=== PATIENT | male | born 1955 | race Caucasian/White ===

== ENCOUNTER 2023-02-28 16:56 | Emergency (ER) | payer OTHER ==
[~2023-02-28] VITALS: Ht 182.9 cm; Wt 74.8 kg
[2023-02-28] MEDS ORDERED: IV NORMAL SALINE 1000 ML BAG IV ONE (17:30)
[2023-02-28] MEDS ORDERED: LOPERAMIDE HCL 2 MG CAPSULE PO ONE (17:30)
[2023-02-28] MEDS ORDERED: LOPERAMIDE HCL 2 MG CAPSULE ONE (17:40)
[2023-02-28 17:50] LABS: BASOPHILS % (AUTO) 0.5 % (0.0-2.0); DIFFERENTIAL COMMENT 0; EOSINOPHILS # (AUTO) 0.1 K/uL (0.0-0.7); EOSINOPHILS % (AUTO) 2.3 % (0.0-7.0); HEMATOCRIT 38.9 % (36.7-47.1); HEMOGLOBIN 12.8 g/dL (12.5-16.3); LYMPHOCYTES # (AUTO) 1.4 K/uL (0.8-4.8); MEAN CORPUSCULAR HEMOGLOBIN 27.8 uug (23.8-33.4); MEAN CORPUSCULAR HGB CONC 33 g/dL (32.5-36.3); MEAN CORPUSCULAR VOLUME 84.6 fL (73.0-96.2); MONOCYTES # (AUTO) 1.4 K/uL (0.1-1.30); NEUTROPHILS # (AUTO) 3.1 K/uL (1.8-8.9); NEUTROPHILS % (AUTO) 51.4 % (38.5-71.5); PLATELET COUNT (AUTO) 228 K/uL (152-348); RED CELL DISTRIBUTION WIDTH 15.3 % (12.1-16.2); WHITE BLOOD COUNT (AUTO) 6.1 K/uL (3.6-10.2)
[2023-02-28 17:55] LABS: LYMPHOCYTES % (AUTO) 30.3 % (20.5-51.5)
[2023-02-28 17:56] LABS: MONOCYTES % (AUTO) 14.5 % (0.0-11.0)
[2023-02-28 17:58] LABS: CALCIUM 8.8 mg/dL (8.5-10.1); CARBON DIOXIDE 26 mmol/L (21-32); CHLORIDE 105 mmol/L (98-107); CREATININE 1.2 mg/dL (0.6-1.3); GLUCOSE 104 mg/dL (74-106); POTASSIUM 3.5 mmol/L (3.5-5.1); SODIUM SERUM 137 mmol/L (136-145); UREA NITROGEN, BLOOD 13 mg/dL (7-18)
[2023-02-28] MEDS ORDERED: DICY10CA13 PO (18:01)
[2023-02-28] MEDS ORDERED: LOPE2TAB25 PO (18:01)
[2023-02-28 18:03] LABS: ALANINE AMINOTRANSFERASE 11 U/L (16-63); ALBUMIN 2.5 g/dL (3.4-5.0); ALKALINE PHOSPHATASE 74 U/L (50-136); ASPARTATE AMINOTRANSFERASE 7 U/L (15-37); BILIRUBIN,DIRECT < 0.1 mg/dL (0.0-0.2); BILIRUBIN,TOTAL 0.2 mg/dL (0.2-1.0); LIPASE 167 U/L (73-393); TOTAL PROTEIN, SERUM 6.5 g/dL (6.4-8.2)
[2023-02-28] MEDS ORDERED: ACETAMINOPHEN ES 500 MG TABLET ONE (18:22)
[2023-02-28] MEDS ORDERED: ACETAMINOPHEN ES 500 MG TABLET PO ONE (18:30)
[2023-02-28 18:49] VITALS: BP 149/92; TEMP 98.5; O2SAT 99
== END 2023-02-28 18:50 | disposition home or self-care (01) ==
LOC: ER 17:00
DX: R19.7 Diarrhea, unspecified (principal); Z88.0 Allergy status to penicillin; Z79.2 Long term (current) use of antibiotics; Z79.899 Other long term (current) drug therapy
CPT/HCPCS: 99283; 96360; 80076; 80048; 83690; 85025; 36415; J7040; A4663; A9150

== ENCOUNTER 2024-01-17 09:12 | Inpatient (IN) | payer OTHER ==
[~2024-01-17] VITALS: Ht 182.9 cm; Wt 69.4 kg
[~2024-01-17 09:12] MED LIST: DICY10CA13 PO; LOPE2TAB25 PO
[2024-01-18 17:30] VITALS: BP 145/76; TEMP 98.5; O2SAT 97
[2024-01-18] MEDS ORDERED: HYDR1VIA2 IJ (17:36)
[2024-01-18] MEDS ORDERED: DIME118C3 TP (17:36)
[2024-01-18] MEDS ORDERED: PANT40TA49 PO (17:36)
[2024-01-18] MEDS ORDERED: POLY15DR40 EACHEYE (17:36)
[2024-01-18] MEDS ORDERED: DOCU100T2 PO (17:36)
[2024-01-18] MEDS ORDERED: ENOX40DI SQ (17:36)
[2024-01-18] MEDS ORDERED: HYDR-4209 PO (17:36)
[2024-01-18] MEDS ORDERED: TAMS-3 PO (17:36)
[2024-01-18] MEDS ORDERED: POLYVINYL ALCOHOL OPHT DROPS 15 ML BOTTLE EACHEYE PRN (18:30)
[2024-01-18] MEDS ORDERED: HOME MED MISCELLANEOUS XX SCH (18:30)
[2024-01-18] MEDS ORDERED: POLYVINYL ALCOHOL OPHT DROPS 15 ML BOTTLE RIGHTEYE PRN (18:38)
[2024-01-18] MEDS ORDERED: REMEDY ESSENTIAL ZINC PASTE 113 GM TP PRN (18:45)
[2024-01-18] MEDS: TAMSULOSIN HCL 0.4 MG CAP.SR.24H PO SCH (20:43)
[2024-01-18] MEDS: HYDROMORPHONE 1 MG/1 ML DISP.SYRIN IV PRN (20:45)
[2024-01-18] MEDS ORDERED: REMEDY ESSENTIAL ZINC PASTE 113 GM TOP PRN (22:15)
[2024-01-19 06:06] VITALS: BP 147/82; TEMP 98.9; O2SAT 95
[2024-01-19] MEDS: HYDROCODONE/APAP 5-325MG TABLET PO PRN (07:02)
[2024-01-19] MEDS: DOCUSATE SODIUM 100 MG/10 ML LIQUID UDC PO SCH (09:00)
[2024-01-19] MEDS: PANTOPRAZOLE SODIUM 40 MG TABLET.DR PO SCH (09:00)
[2024-01-19] MEDS: ENOXAPARIN SODIUM 40 MG/0.4 ML DISP.SYRIN SQ SCH (09:02)
[2024-01-19] MEDS: OXYCODONE HCL 5 MG TABLET PO PRN (11:24)
[2024-01-19 16:29] VITALS: BP 118/60; TEMP 98; O2SAT 95
[2024-01-19 19:53] VITALS: BP 126/96; TEMP 98.9; O2SAT 94
[2024-01-19] MEDS: MORPHINE SULFATE SR 15 MG TABLET.SA PO SCH (20:05)
[2024-01-20 04:53] VITALS: BP 136/73; TEMP 98.5; O2SAT 96
[2024-01-20 15:44] VITALS: BP 119/61; TEMP 97.2; O2SAT 97
[2024-01-20 19:00] VITALS: BP 134/81; TEMP 98.8; O2SAT 95
[2024-01-21 06:00] VITALS: BP 131/67; TEMP 98.6; O2SAT 96
[2024-01-21 06:37] LABS: BASOPHILS % (AUTO) 0.4 % (0.0-2.0); EOSINOPHILS # (AUTO) 0.2 K/uL (0.0-0.7); EOSINOPHILS % (AUTO) 3.3 % (0.0-7.0); HEMATOCRIT 28.3 % (36.7-47.1); HEMOGLOBIN 9.7 g/dL (12.5-16.3); LYMPHOCYTES # (AUTO) 1.6 K/uL (0.8-4.8); LYMPHOCYTES % (AUTO) 24.3 % (20.5-51.5); MEAN CORPUSCULAR HGB CONC 34 g/dL (32.5-36.3); MEAN CORPUSCULAR VOLUME 84.9 fL (73.0-96.2); MONOCYTES # (AUTO) 0.7 K/uL (0.1-1.30); MONOCYTES % (AUTO) 11.3 % (0.0-11.0); NEUTROPHILS # (AUTO) 3.9 K/uL (1.8-8.9); NEUTROPHILS % (AUTO) 60.7 % (38.5-71.5); PLATELET COUNT (AUTO) 366 K/uL (152-348); RED BLOOD CELL COUNT(AUTO) 3.33 MIL/uL (4.06-5.63); RED CELL DISTRIBUTION WIDTH 15.3 % (12.1-16.2); WHITE BLOOD COUNT (AUTO) 6.4 K/uL (3.6-10.2)
[2024-01-21 06:40] LABS: DIFFERENTIAL COMMENT 1
[2024-01-21 06:50] LABS: ALANINE AMINOTRANSFERASE 31 U/L (16-63); ALBUMIN 2.1 g/dL (3.4-5.0); ALKALINE PHOSPHATASE 136 U/L (50-136); ASPARTATE AMINOTRANSFERASE 24 U/L (15-37); BILIRUBIN,TOTAL 0.3 mg/dL (0.2-1.0); CALCIUM 8.5 mg/dL (8.5-10.1); CARBON DIOXIDE 32 mmol/L (21-32); CHLORIDE 104 mmol/L (98-107); CREATININE 1.1 mg/dL (0.6-1.3); GLUCOSE 98 mg/dL (74-106); MAGNESIUM 1.9 mg/dL (1.8-2.4); PHOSPHOROUS 3.7 mg/dL (2.5-4.9); POTASSIUM 4.4 mmol/L (3.5-5.1); SODIUM SERUM 139 mmol/L (136-145); TOTAL PROTEIN, SERUM 6.3 g/dL (6.4-8.2); UREA NITROGEN, BLOOD 26 mg/dL (7-18)
[2024-01-21 16:00] VITALS: BP 133/80; TEMP 98.3; O2SAT 97
[2024-01-21 21:26] VITALS: BP 112/49; TEMP 98.5; O2SAT 93
[2024-01-22 04:00] VITALS: BP 124/72; TEMP 98.2; O2SAT 94
[2024-01-22] MEDS: MAGNESIUM HYDROXIDE 30 ML LIQUID UDC PO PRN (08:39)
[2024-01-22] MEDS ORDERED: DOCUSATE SODIUM 100 MG CAPSULE PO SCH (09:00)
[2024-01-22 16:00] VITALS: BP 143/69; TEMP 98.6; O2SAT 95
[2024-01-22 19:00] VITALS: BP 125/73; TEMP 98.4; O2SAT 95
[2024-01-22] MEDS: DOCUSATE SODIUM 100 MG CAPSULE PO SCH (20:20)
[2024-01-23 06:00] VITALS: BP 135/79; TEMP 98.4; O2SAT 94
[2024-01-23 15:12] VITALS: BP 147/84; TEMP 97.7; O2SAT 97
[2024-01-23 19:00] VITALS: BP 136/71; TEMP 99.6; O2SAT 98
[2024-01-24 06:00] VITALS: BP 156/79; TEMP 98.8; O2SAT 95
[2024-01-24 08:02] LABS: BASOPHILS # (AUTO) 0.1 K/UL (0.0-0.2); BASOPHILS % (AUTO) 0.8 % (0.0-2.0); EOSINOPHILS # (AUTO) 0.1 K/uL (0.0-0.7); EOSINOPHILS % (AUTO) 1.1 % (0.0-7.0); HEMATOCRIT 29.4 % (36.7-47.1); HEMOGLOBIN 9.7 g/dL (12.5-16.3); LYMPHOCYTES # (AUTO) 1.6 K/uL (0.8-4.8); LYMPHOCYTES % (AUTO) 15.3 % (20.5-51.5); MEAN CORPUSCULAR HEMOGLOBIN 28.4 uug (23.8-33.4); MEAN CORPUSCULAR HGB CONC 33 g/dL (32.5-36.3); MEAN CORPUSCULAR VOLUME 85.7 fL (73.0-96.2); MONOCYTES % (AUTO) 9.3 % (0.0-11.0); NEUTROPHILS # (AUTO) 7.7 K/uL (1.8-8.9); NEUTROPHILS % (AUTO) 73.5 % (38.5-71.5); PLATELET COUNT (AUTO) 408 K/uL (152-348); RED BLOOD CELL COUNT(AUTO) 3.43 MIL/uL (4.06-5.63); RED CELL DISTRIBUTION WIDTH 15.1 % (12.1-16.2); WHITE BLOOD COUNT (AUTO) 10.5 K/uL (3.6-10.2)
[2024-01-24 08:24] LABS: DIFFERENTIAL COMMENT 1
[2024-01-24 08:31] LABS: ALANINE AMINOTRANSFERASE 18 U/L (16-63); ALBUMIN 2.3 g/dL (3.4-5.0); ALKALINE PHOSPHATASE 153 U/L (50-136); ASPARTATE AMINOTRANSFERASE 11 U/L (15-37); BILIRUBIN,TOTAL 0.5 mg/dL (0.2-1.0); CARBON DIOXIDE 29 mmol/L (21-32); CHLORIDE 105 mmol/L (98-107); GLUCOSE 100 mg/dL (74-106); MAGNESIUM 2.4 mg/dL (1.8-2.4); PHOSPHOROUS 3.3 mg/dL (2.5-4.9); POTASSIUM 4.5 mmol/L (3.5-5.1); SODIUM SERUM 139 mmol/L (136-145); TOTAL PROTEIN, SERUM 6.8 g/dL (6.4-8.2); UREA NITROGEN, BLOOD 24 mg/dL (7-18)
[2024-01-24 08:33] LABS: THYROID STIMULATING HORMONE 1.379 mIU/mL (0.358-3.740)
[2024-01-24 08:34] LABS: IRON, SERUM 26 ug/dL (50-175)
[2024-01-24 10:14] LABS: TRIGLYCERIDES 85 MG/DL (30-150)
[2024-01-24 10:15] LABS: CHOLESTEROL 190 mg/dL (<200); HDL CHOLESTEROL 45 mg/dL (40-60)
[2024-01-24 15:50] VITALS: BP 130/77; TEMP 98.2; O2SAT 98
[2024-01-24] MEDS ORDERED: BISACODYL 10 MG SUPP.RECT RC PRN (16:45)
[2024-01-25 04:00] VITALS: TEMP 98.3
[2024-01-25] MEDS: FERROUS SULFATE 325 MG TABEC PO SCH (09:25)
[2024-01-25 16:10] VITALS: BP 128/71; TEMP 98; O2SAT 98
[2024-01-25 20:00] VITALS: TEMP 99.9
[2024-01-25] MEDS: ATORVASTATIN 10 MG TABLET PO SCH (20:24)
[2024-01-25 22:00] VITALS: TEMP 102.5
[2024-01-25] MEDS: ACETAMINOPHEN 325 MG TABLET PO PRN (22:46)
[2024-01-25 23:00] LABS: *BILIRUBIN,URIN NEGATIVE (NEGATIVE); *BLOOD, URINE 1+ (NEGATIVE); *CLARITY,URINE SLIGHTLY CLOUDY (CLEAR); *COLOR,URINE YELLOW (YELLOW); *KETONES,URINE NEGATIVE (NEGATIVE); *PROTEIN,URINE NEGATIVE (NEGATIVE); *UROBILINOGEN,URINE 0.2 E.U./dl (NORMAL); LEUKOCYTE ESTERASE ,URINE 3+ (NEGATIVE); NITRITE, URINE POSITIVE (NEGATIVE); PH,URINE 5.5 (5.0-8.0); UGLUCOSE NEGATIVE (NEGATIVE)
[2024-01-25 23:02] LABS: CARBON DIOXIDE 29 mmol/L (21-32); CHLORIDE 103 mmol/L (98-107); CREATININE 1.2 mg/dL (0.6-1.3); GLUCOSE 95 mg/dL (74-106); POTASSIUM 4.3 mmol/L (3.5-5.1); SODIUM SERUM 138 mmol/L (136-145); UREA NITROGEN, BLOOD 26 mg/dL (7-18)
[2024-01-25 23:11] LABS: BASOPHILS % (AUTO) 0.3 % (0.0-2.0); EOSINOPHILS # (AUTO) 0.1 K/uL (0.0-0.7); EOSINOPHILS % (AUTO) 0.8 % (0.0-7.0); HEMATOCRIT 30.4 % (36.7-47.1); HEMOGLOBIN 10.1 g/dL (12.5-16.3); LYMPHOCYTES # (AUTO) 1.4 K/uL (0.8-4.8); LYMPHOCYTES % (AUTO) 13.5 % (20.5-51.5); MEAN CORPUSCULAR HEMOGLOBIN 28.6 uug (23.8-33.4); MEAN CORPUSCULAR HGB CONC 33 g/dL (32.5-36.3); MEAN CORPUSCULAR VOLUME 85.8 fL (73.0-96.2); MONOCYTES # (AUTO) 0.8 K/uL (0.1-1.30); MONOCYTES % (AUTO) 7.7 % (0.0-11.0); NEUTROPHILS # (AUTO) 7.9 K/uL (1.8-8.9); NEUTROPHILS % (AUTO) 77.7 % (38.5-71.5); PLATELET COUNT (AUTO) 465 K/uL (152-348); RED BLOOD CELL COUNT(AUTO) 3.54 MIL/uL (4.06-5.63); RED CELL DISTRIBUTION WIDTH 15.3 % (12.1-16.2); WHITE BLOOD COUNT (AUTO) 10.2 K/uL (3.6-10.2)
[2024-01-25 23:14] LABS: DIFFERENTIAL COMMENT 1
[2024-01-25 23:29] LABS: BACTERIA,URINE MODERATE /HPF (NONE SEEN); SQUAMOUS EPITHELIAL CELL,UR NONE SEEN /HPF (NONE SEEN); WBC,URINE 20-50 /HPF (0-3)
[2024-01-26] MEDS ORDERED: CEFTRIAXONE /D5W 50ML IVPB **ER PYXIS IV ONE (00:19)
[2024-01-26] MEDS: CEFTRIAXONE 1 G in IV DEXTROSE 5% 50 ML IV SCH (01:07)
[2024-01-26 01:43] VITALS: TEMP 99
[2024-01-26 06:00] VITALS: TEMP 98.3
[2024-01-26 16:31] VITALS: BP 119/61; TEMP 98.6; O2SAT 97
[2024-01-26 20:15] VITALS: BP 103/61; TEMP 98.1
[2024-01-27 05:20] VITALS: BP 116/69; TEMP 98.3; O2SAT 94
[2024-01-27 06:23] LABS: BASOPHILS # (AUTO) 0.1 K/UL (0.0-0.2); BASOPHILS % (AUTO) 1.1 % (0.0-2.0); EOSINOPHILS # (AUTO) 0.2 K/uL (0.0-0.7); EOSINOPHILS % (AUTO) 3.9 % (0.0-7.0); HEMATOCRIT 27.8 % (36.7-47.1); LYMPHOCYTES # (AUTO) 1.7 K/uL (0.8-4.8); LYMPHOCYTES % (AUTO) 35.2 % (20.5-51.5); MEAN CORPUSCULAR HEMOGLOBIN 27.9 uug (23.8-33.4); MEAN CORPUSCULAR HGB CONC 32 g/dL (32.5-36.3); MEAN CORPUSCULAR VOLUME 85.9 fL (73.0-96.2); MONOCYTES # (AUTO) 0.6 K/uL (0.1-1.30); MONOCYTES % (AUTO) 11.8 % (0.0-11.0); NEUTROPHILS # (AUTO) 2.3 K/uL (1.8-8.9); PLATELET COUNT (AUTO) 395 K/uL (152-348); RED BLOOD CELL COUNT(AUTO) 3.24 MIL/uL (4.06-5.63); RED CELL DISTRIBUTION WIDTH 15.4 % (12.1-16.2); WHITE BLOOD COUNT (AUTO) 4.7 K/uL (3.6-10.2)
[2024-01-27 06:32] LABS: DIFFERENTIAL COMMENT 1
[2024-01-27 06:41] LABS: ALANINE AMINOTRANSFERASE 14 U/L (16-63); ALBUMIN 2.1 g/dL (3.4-5.0); ALKALINE PHOSPHATASE 133 U/L (50-136); ASPARTATE AMINOTRANSFERASE 11 U/L (15-37); BILIRUBIN,TOTAL 0.4 mg/dL (0.2-1.0); CALCIUM 8.8 mg/dL (8.5-10.1); CARBON DIOXIDE 29 mmol/L (21-32); CHLORIDE 106 mmol/L (98-107); CREATININE 1.1 mg/dL (0.6-1.3); GLUCOSE 119 mg/dL (74-106); PHOSPHOROUS 4.1 mg/dL (2.5-4.9); POTASSIUM 4.4 mmol/L (3.5-5.1); SODIUM SERUM 140 mmol/L (136-145); TOTAL PROTEIN, SERUM 6.2 g/dL (6.4-8.2); UREA NITROGEN, BLOOD 22 mg/dL (7-18)
[2024-01-27 16:03] VITALS: BP 137/73; TEMP 98; O2SAT 94
[2024-01-27 20:48] VITALS: BP 123/70; TEMP 98.4; O2SAT 94
[2024-01-28 05:55] VITALS: BP 132/78; TEMP 98.5; O2SAT 95
[2024-01-28 08:30] VITALS: BP 128/74; TEMP 98.3; O2SAT 95
[2024-01-28 15:53] VITALS: BP 127/61; TEMP 98.8; O2SAT 94
[2024-01-28 20:47] VITALS: BP 128/70; TEMP 98.4; O2SAT 98
[2024-01-29 06:27] VITALS: BP 120/58; TEMP 97.7; O2SAT 98
[2024-01-29 15:18] VITALS: BP 123/69; TEMP 98.1; O2SAT 95
[2024-01-29 20:00] VITALS: BP 126/74; TEMP 98.5; O2SAT 97
[2024-01-29] MEDS ORDERED: ATORVASTATIN 10 MG TABLET PO SCH (21:00)
[2024-01-30 06:00] VITALS: BP 130/74; TEMP 98.7; O2SAT 95
[2024-01-30 14:56] VITALS: BP 141/68; TEMP 98.8; O2SAT 96
[2024-01-30 20:36] VITALS: BP 149/81; TEMP 97.9; O2SAT 97
[2024-01-31 05:43] VITALS: BP 127/68; TEMP 97.4; O2SAT 97
[2024-01-31 15:42] VITALS: BP 117/70; TEMP 98.3; O2SAT 97
[2024-01-31 20:00] VITALS: BP 134/75; TEMP 98.7; O2SAT 95
[2024-02-01 04:00] VITALS: BP 129/73; TEMP 98.5; O2SAT 93
[2024-02-01 15:15] VITALS: BP 134/77; TEMP 98; O2SAT 95
[2024-02-01 19:00] VITALS: BP 132/77; TEMP 98.7; O2SAT 98
[2024-02-02 06:26] VITALS: BP 118/55; TEMP 98.2; O2SAT 94
[2024-02-02 11:22] VITALS: BP 122/71; TEMP 98; O2SAT 97
[2024-02-02 14:12] VITALS: BP 120/80; TEMP 98.6; O2SAT 97
[2024-02-02 16:00] VITALS: BP 140/80; TEMP 98.2; O2SAT 95
[2024-02-02 20:16] VITALS: BP 131/71; TEMP 98.3; O2SAT 94
[2024-02-03 05:43] VITALS: BP 146/80; TEMP 97.8; O2SAT 94
[2024-02-03 07:00] VITALS: TEMP 97.8
== END 2024-02-03 13:00 | disposition home health service (06) | DRG 559 ==
PROVIDERS: ADMIT Physical Medicine & Rehabilitation Pain Medicine; ATTEND Physical Medicine & Rehabilitation Pain Medicine
DX: Z47.1 Aftercare following joint replacement surgery (principal); E43 Unspecified severe protein-calorie malnutrition; N17.0 Acute kidney failure with tubular necrosis; D68.59 Other primary thrombophilia; E44.1 Mild protein-calorie malnutrition; N39.0 Urinary tract infection, site not specified; Z96.642 Presence of left artificial hip joint; D64.9 Anemia, unspecified; D63.8 Anemia in other chronic diseases classified elsewhere; N40.0 Benign prostatic hyperplasia without lower urinary tract symptoms; Z88.0 Allergy status to penicillin; Z91.81 History of falling; E78.5 Hyperlipidemia, unspecified; R53.1 Weakness; Z86.19 Personal history of other infectious and parasitic diseases
CPT/HCPCS: 36415; 71045; 73502; 83550; 83605; 83735; 84100; 84443; 85025; 87040; A4663; J0696; J1170; J1650; J7040

== ENCOUNTER 2025-02-07 18:37 | Emergency (ER) | payer BC, OTHER ==
[~2025-02-07] VITALS: Ht 172.7 cm; Wt 67.1 kg
[~2025-02-07 18:37] MED LIST changes: -DICY10CA13 PO; +DIME118C3 TP; +DOCU100T2 PO; +ENOX40DI SQ; +HYDR-4209 PO; +HYDR1VIA2 IJ; -LOPE2TAB25 PO; +PANT40TA49 PO; +POLY15DR40 EACHEYE; +TAMS-3 PO
[2025-02-07 18:55] VITALS: BP 147/76
[2025-02-07] MEDS ORDERED: PANTOPRAZOLE SODIUM 40 MG VIAL ONE (19:36)
[2025-02-07] MEDS ORDERED: METOCLOPRAMIDE HCL 10 MG/2 ML VIAL ONE (19:36)
[2025-02-07] MEDS ORDERED: chlorproMAZINE 50 MG/2 ML AMPUL ONE (19:37)
[2025-02-07 19:41] LABS: PLATELET COUNT (AUTO) 224 K/uL (152-348); RED BLOOD CELL COUNT(AUTO) 4.24 MIL/uL (4.06-5.63); RED CELL DISTRIBUTION WIDTH 15.1 % (12.1-16.2); WHITE BLOOD COUNT (AUTO) 5.0 K/uL (3.6-10.2)
[2025-02-07 19:50] LABS: CREATININE 1.2 mg/dL (0.6-1.3); SODIUM SERUM 143 mmol/L (136-145); UREA NITROGEN, BLOOD 21 mg/dL (7-18)
[2025-02-07 19:55] LABS: TOTAL PROTEIN, SERUM 7.2 g/dL (6.4-8.2)
[2025-02-07 19:59] LABS: LACTIC ACID 2.4 mmol/L (0.4-2.0)
[2025-02-07] MEDS: chlorproMAZINE 50 MG/2 ML AMPUL IM ONE (20:02)
[2025-02-07] MEDS: PANTOPRAZOLE SODIUM IV 40 MG in IV DEXTROSE 5% 100 ML IV ONE (20:02)
[2025-02-07] MEDS: METOCLOPRAMIDE HCL 10 MG/2 ML VIAL IV ONE (20:02)
[2025-02-07 20:09] LABS: ASPARTATE AMINOTRANSFERASE 6 U/L (15-37)
[2025-02-07] MEDS: IV NS 1000 ML 1,000 ML IV ONE ×2 (20:21→22:25)
[2025-02-07 21:19] LABS: *BILIRUBIN,URIN NEGATIVE (NEGATIVE); *BLOOD, URINE 2+ (NEGATIVE); *CLARITY,URINE SLIGHTLY CLOUDY (CLEAR); *COLOR,URINE YELLOW (YELLOW); *KETONES,URINE NEGATIVE (NEGATIVE); *PROTEIN,URINE 2+ (NEGATIVE); *UROBILINOGEN,URINE 1.0 E.U./dl (NORMAL); LEUKOCYTE ESTERASE ,URINE 3+ (NEGATIVE); NITRITE, URINE POSITIVE (NEGATIVE); UGLUCOSE NEGATIVE (NEGATIVE)
[2025-02-07 21:31] LABS: SQUAMOUS EPITHELIAL CELL,UR FEW /HPF (NONE SEEN)
[2025-02-07] MEDS ORDERED: CHLO10TA5 PO (23:02)
[2025-02-07] MEDS ORDERED: LEVO250S3 PO (23:02)
[2025-02-08 00:52] VITALS: BP 140/76; O2SAT 96
== END 2025-02-08 00:53 | disposition home or self-care (01) ==
LOC: ER 18:43
DX: N39.0 Urinary tract infection, site not specified (principal); R06.6 Hiccough; K21.9 Gastro-esophageal reflux disease without esophagitis; F17.210 Nicotine dependence, cigarettes, uncomplicated; R06.02 Shortness of breath; J43.9 Emphysema, unspecified; N20.0 Calculus of kidney; Z79.899 Other long term (current) drug therapy; Z88.0 Allergy status to penicillin
CPT/HCPCS: 99285; 74176; 96365; 71045; 96367; 96375; 80053; 81001; 82248; 83880; 83690; 85025; 87040; 87186; 87086; 87077; 84484; 36415; 93005; 83605 ×2; 96372; Q0161; J3230; J1956; J2765; J2470 ×2; J7040 ×2; A4606; A4663